=== PATIENT | female | born 1995 | race Two or more races ===

== ENCOUNTER 2023-03-29 08:54 | Outpatient (CLI) | payer OTHER | END 2023-03-29 09:11 | disposition home or self-care (01) | LOC: MAMO-SONO 08:54 | PROVIDERS: ATTEND Obstetrics & Gynecology | DX: N97.9 Female infertility, unspecified (principal); D25.9 Leiomyoma of uterus, unspecified; N60.11 Diffuse cystic mastopathy of right breast; N60.12 Diffuse cystic mastopathy of left breast ==